=== PATIENT | male | born 1955 | race Hispanic/Latino ===

== ENCOUNTER 2020-02-12 06:33 | Day surgery (SDC) | payer OTHER ==
[~2020-02-12] VITALS: Ht 177.8 cm; Wt 91.6 kg
[~2020-02-12 06:33] MED LIST: ATOR10TA PO; BUPR300T53 PO; LOSA100T58 PO; SODIUM CHLORIDE 0.9% 1000ML 1,000 ML IV ONE
[2020-02-12 07:08] VITALS: BP 127/69
[2020-02-12] MEDS ORDERED: PROPOFOL 10 MG/ML 20ML VIAL IV ONE ×2 (08:31→08:56)
[2020-02-12 09:04] VITALS: BP 97/54
[2020-02-12 09:10] VITALS: BP 102/66
[2020-02-12 09:16] VITALS: BP 122/54
[2020-02-12 09:20] VITALS: BP 115/71
== END 2020-02-12 09:35 | disposition home or self-care (01) ==
LOC: DAH 06:33 → ENDO 06:33
PROVIDERS: ATTEND Internal Medicine Gastroenterology
DX: R63.4 Abnormal weight loss (principal); K62.1 Rectal polyp; K29.50 Unspecified chronic gastritis without bleeding; B96.81 Helicobacter pylori [H. pylori] as the cause of diseases classified elsewhere; K21.0 Gastro-esophageal reflux disease with esophagitis; K64.0 First degree hemorrhoids; Z20.828 Contact with and (suspected) exposure to other viral communicable diseases; F41.9 Anxiety disorder, unspecified; F32.9 Major depressive disorder, single episode, unspecified; I10 Essential (primary) hypertension; R14.0 Abdominal distension (gaseous); Z79.899 Other long term (current) drug therapy
CPT/HCPCS: 43239; 45380; A4215; A4221; A4222; A4223; A4606; A4620; A4657; A4663; C9803; J2704 ×2; J7030; U0003